=== PATIENT | female | born 1940 | race Caucasian/White ===

== ENCOUNTER 2024-11-09 08:32 | Day surgery (SDC) | payer BC ==
[2024-10-26 14:54] LABS: BASOPHILS % (AUTO) 0.6 % (0-1); EOSINOPHILS # (AUTO) 0.2 X10'3 (0-0.9); EOSINOPHILS % (AUTO) 2.1 % (0-6); LYMPHOCYTES # (AUTO) 1.9 X10'3 (1.1-4.8); LYMPHOCYTES % (AUTO) 25.9 % (21-51); MEAN CORPUSCULAR HEMOGLOBIN 31.9 PG (27.0-31.0); MEAN CORPUSCULAR HGB CONC 34.1 g/dL (33.0-36.5); MEAN CORPUSCULAR VOLUME 93.5 FL (78-98); MEAN PLATELET VOLUME 7.5 FL (7.4-10.4); MONOCYTES # (AUTO) 0.5 X10'3 (0-0.9); MONOCYTES % (AUTO) 7.6 % (2-12); NEUTROPHILS # (AUTO) 4.6 X10'3 (1.8-7.7); NEUTROPHILS % (AUTO) 63.8 % (42-75); PRE OP HEMATOCRIT 34.8 % (35.0-45.0); PRE OP HEMOGLOBIN 11.9 g/dL (12.0-16.0); PRE OP PLATELET COUNT 286 X10'3 (140-440); PRE OP WHITE BLOOD COUNT 7.2 10'3 (4.8-10.8); RED BLOOD COUNT 3.72 X10'6 (4.20-5.60); RED CELL DISTRIBUTION WIDTH 14.2 % (11.5-14.5)
[2024-10-26 14:54] LABS: BILIRUBIN,URINE NEGATIVE (Neg); CLARITY,URINE CLEAR (Clear); COLOR,URINE YELLOW (Yellow); GLUCOSE, URINE NEGATIVE (Neg); KETONES,URINE NEGATIVE (Neg); LEUKOCYTE ESTERASE ,URINE NEGATIVE (Neg); NITRITES, URINE NEGATIVE (Neg); OCCULT BLOOD,URINE NEGATIVE (Neg); PH,URINE 7.5 (4.8-8.0); PROTEIN,URINE NEGATIVE (Neg); UROBILINOGEN,URINE 0.2 E.U/dL (0.2-1.0)
[2024-10-26 15:07] LABS: UA COLLECTION TYPE CLN CATCH MIDSTREAM
[2024-10-26 15:08] LABS: PRE OP INR 1.1 INR; PRE OP PROTIME 11.4 SECONDS (9.0-12.0)
[2024-10-26 15:31] LABS: ALBUMIN 3.8 G/DL (3.4-5.0); ALBUMIN/GLOBULIN RATIO 1.1 (1.1-1.5); ALKALINE PHOSPHATASE 55 IU/L (46-116); BLOOD UREA NITROGEN 11 MG/DL (7-18); BUN/CREATININE RATIO 14.1 (10.0-20.0); CALCIUM 9.5 MG/DL (8.5-10.1); CHLORIDE 101 MMOL/L (99-107); CREATININE 0.78 MG/DL (0.40-0.90); PRE OP ALT 10 U/L (30-65); PRE OP ANION GAP 7 (8-16); PRE OP AST 20 U/L (10-37); PRE OP BILIRUB, TOTAL 0.6 MG/DL (0.0-1.0); PRE OP GLUCOSE 113 MG/DL (70-104); PRE OP POTASSIUM 4.1 MMOL/L (3.4-5.1); PRE OP SODIUM 136 MMOL/L (135-145); THYROID STIMULATING HORMONE 0.83 ulU/ml (0.34-4.50); TOTAL CARBON DIOXIDE 28.3 MMOL/L (24-32); TOTAL PROTEIN 7.3 G/DL (6.4-8.2); eGFR 71 ML/MIN
[2024-10-26 15:33] LABS: HEMOGLOBIN A1C 6.4 % (4.5-6.2)
[2024-11-09] VITALS (33 sets, daily range): BP systolic 95–151; BP diastolic 47–78; PULSE 63–82; RESP 12–21; TEMP 98–98.4; O2SAT 95–100
[~2024-11-09] VITALS: Ht 160 cm; Wt 59.2 kg
[2024-11-09] MEDS: tranexamic acid 1gm/0.7% sal. 100 ML IV ONE (05:30)
[2024-11-09] MEDS: ceFAZolin 2gm in dextrose, iso 50 ML IV ONE (05:30)
[~2024-11-09 08:32] MED LIST: ACET-75 PO; APIX5TAB3 PO; CALC-212 PO; CHOL10005 PO; DIPH25CA51 PO; DOCU-337 PO; FURO-150 PO; GABA300C PO; HYDR-3973 PO; LEVA15HF9 INH; LEVO75TA PO; LISI5TAB22 PO; MELA10TA2 PO; METF-436 PO; POTA-188 PO; Thrombin (Bovine) 5,000 unit vial TP ONE; VITA-268 PO; gelatin sponge, absorbable (Gelfoam 100) sponge TP ONE; methylene blue (5mg/ml) 50mg/10ml ampul IV ONE; vancomycin 1,000mg inj ONE
[2024-11-09] MEDS: famotidine 20mg tablet PO ONE (08:54)
[2024-11-09] MEDS: ringers solution, lacted 1,000 ML IV SCH ×2 (08:55→13:15)
[2024-11-09] MEDS ORDERED: midazolam 1 mg/ML 2ml injection ONE (10:28)
[2024-11-09] MEDS ORDERED: sevoflurane 250ml liquid IH ONE (10:28)
[2024-11-09] MEDS ORDERED: diphenhydrAMINE 25mg capsule PO PRN (10:30)
[2024-11-09] MEDS ORDERED: ondansetron/PF 4mg/2ml inj IV PRN ×2 (10:30→13:15)
[2024-11-09] MEDS ORDERED: bisacodyl 10mg suppository rectal RC PRN (10:30)
[2024-11-09] MEDS ORDERED: naloxone 0.4 mg/ml inj IV PRN (10:30)
[2024-11-09] MEDS ORDERED: acetaminophen 325mg tablet PO PRN (10:30)
[2024-11-09] MEDS ORDERED: magnesium hydroxide 30ml (MOM) UD suspension PO PRN (10:30)
[2024-11-09] MEDS ORDERED: fentaNYL /PF 50mcg/ml 5ml ampule ONE (10:32)
[2024-11-09] MEDS ORDERED: propofol inj 20 ML IV ONE (11:26)
[2024-11-09] MEDS ORDERED: ePHEDrine 50MG/ML INJ. ONE (11:26)
[2024-11-09] MEDS ORDERED: ROPIVAcaine 0.5% (5mg/ml) 30ml vial ONE (11:26)
[2024-11-09] MEDS ORDERED: 0.9 % SODIUM CHLORIDE 10 ML VIAL ONE ×2 (11:26→11:52)
[2024-11-09] MEDS ORDERED: dexamethasone sod phosphate 4mg/ml inj. ONE (11:26)
[2024-11-09] MEDS ORDERED: LIDOcaine 2% (20mg/ml) 5ml vial ONE (11:27)
[2024-11-09] MEDS ORDERED: LIDOcaine 1%/PF 5ML 10 MG/ML VIAL ONE (11:27)
[2024-11-09] MEDS ORDERED: ondansetron/PF 4mg/2ml inj ONE (11:27)
[2024-11-09] MEDS ORDERED: rocuronium 10mg/ml inj IV ONE (11:27)
[2024-11-09] MEDS ORDERED: phenylephrine 10mg/ml inj. ONE (11:51)
[2024-11-09] MEDS ORDERED: morphine 2 MG/ML inj. syringe IV PRN (13:15)
[2024-11-09] MEDS: acetaminophen 1,000mg/100ml IV 100 ML IV ONE (13:15)
[2024-11-09] MEDS ORDERED: labetalol 20mg/4ml (5mg/ml) syringe IV PRN (13:15)
[2024-11-09] MEDS ORDERED: hydrALAZINE 20mg/ml inj. IV PRN (13:15)
[2024-11-09] MEDS ORDERED: meperidine/PF 25mg/ml syringe IV PRN ×3 (13:15)
[2024-11-09] MEDS ORDERED: morphine 4 MG/ML inj SYRINge IV PRN (13:15)
[2024-11-09] MEDS ORDERED: proCHLORperazine 10 MG/2 ml inj IV PRN (13:15)
[2024-11-09] MEDS ORDERED: glucagon, human recombinant 1mg kit SUBCUT PRN (14:05)
[2024-11-09] MEDS ORDERED: dextrose 50%-water 50ml dispensing syringe IV PRN ×2 (14:05)
[2024-11-09] MEDS ORDERED: DEXTROSE 15 GM of carb/4 tabs (each vial/BOTTLE has 4 tablets) PO PRN ×2 (14:05)
[2024-11-09] MEDS: ceFAZolin 2gm in dextrose, iso 50 ML IV SCH (19:57)
[2024-11-09] MEDS: metFORMIN 500mg tablet PO SCH (19:58)
[2024-11-09] MEDS: potassium cl 20mEq in 1/2 NS 1,000 ML IV SCH (22:18)
[2024-11-09] MEDS: INSULIN LISPRO 100 UNIT/ML INSULN.PEN MULTI-DOSE SQ SCH (22:21)
[2024-11-10] MEDS: HYDROcodone/acetaminophen 5mg/325mg tablet PO PRN ×2 (01:33→09:39)
[2024-11-10 02:00] VITALS: BP 121/61; PULSE 69; RESP 18; TEMP 98.1; O2SAT 97
[2024-11-10 05:59] LABS: BASOPHILS % (AUTO) 0.1 % (0-1); EOSINOPHILS % (AUTO) 0 % (0-6); HEMATOCRIT 29.9 % (35.0-45.0); HEMOGLOBIN 10.2 g/dl (12.0-16.0); LYMPHOCYTES # (AUTO) 0.5 X10'3 (1.1-4.8); LYMPHOCYTES % (AUTO) 8.1 % (21-51); MEAN CORPUSCULAR HEMOGLOBIN 32.1 PG (27.0-31.0); MEAN CORPUSCULAR HGB CONC 34.2 g/dL (33.0-36.5); MEAN CORPUSCULAR VOLUME 94.1 FL (78-98); MEAN PLATELET VOLUME 7.6 FL (7.4-10.4); MONOCYTES # (AUTO) 0.7 X10'3 (0-0.9); MONOCYTES % (AUTO) 11.2 % (2-12); NEUTROPHILS # (AUTO) 5.4 X10'3 (1.8-7.7); NEUTROPHILS % (AUTO) 80.6 % (42-75); PLATELET COUNT 194 X10'3 (140-440); RED BLOOD COUNT 3.18 X10'6 (4.20-5.60); RED CELL DISTRIBUTION WIDTH 14.1 % (11.5-14.5); WHITE BLOOD COUNT 6.7 X10'3 (4.5-11.0)
[2024-11-10 06:19] LABS: ALANINE AMINOTRANSFERASE 11 U/L (12-78); ALBUMIN/GLOBULIN RATIO 1.2 (1.1-1.5); ALKALINE PHOSPHATASE 46 IU/L (46-116); ANION GAP 7 (8-16); ASPARTATE AMINO TRANSFERASE 13 U/L (10-37); BILIRUBIN,TOTAL 0.4 MG/DL (0.1-1.0); BLOOD UREA NITROGEN 21 MG/DL (7-18); BUN/CREATININE RATIO 21.9 (10.0-20.0); CALCIUM 8.5 MG/DL (8.5-10.1); CHLORIDE 103 MMOL/L (99-107); CREATININE 0.96 MG/DL (0.40-0.90); GLUCOSE 179 MG/DL (70-104); POTASSIUM 4.9 MMOL/L (3.5-5.1); SODIUM 134 MMOL/L (135-145); TOTAL CARBON DIOXIDE 24.1 MMOL/L (24-32); TOTAL PROTEIN 5.6 G/DL (6.4-8.2); eCRCL 37 ML/MIN; eGFR 56 ML/MIN
[2024-11-10] MEDS ORDERED: non-formulary drug (Vitamin B Complex (B Complex) 1 TAB) PO SCH (08:00)
[2024-11-10 10:15] VITALS: RESP 18
[2024-11-11] MEDS ORDERED: potassium chloride 10mEq ER tablet PO SCH (08:00)
== END 2024-11-10 10:15 | disposition home or self-care (01) ==
LOC: PAS 08:32 → ORTHO 4S 18:59 → PAS 11-10 10:15
PROVIDERS: ATTEND Specialist
DX: M75.102 Unspecified rotator cuff tear or rupture of left shoulder, not specified as traumatic (principal); M19.012 Primary osteoarthritis, left shoulder; E11.9 Type 2 diabetes mellitus without complications; I10 Essential (primary) hypertension; I48.91 Unspecified atrial fibrillation; F41.9 Anxiety disorder, unspecified; M54.16 Radiculopathy, lumbar region; M48.061 Spinal stenosis, lumbar region without neurogenic claudication; E11.40 Type 2 diabetes mellitus with diabetic neuropathy, unspecified; E03.9 Hypothyroidism, unspecified; Z79.01 Long term (current) use of anticoagulants; Z79.899 Other long term (current) drug therapy; M47.816 Spondylosis without myelopathy or radiculopathy, lumbar region; Z90.710 Acquired absence of both cervix and uterus; G89.18 Other acute postprocedural pain
CPT/HCPCS: 23472; 36415; 64415; 73030; 80053; 81003; 82948; 83036; 84443; 85025; 85610; 85730; 86885; 86900; 86901; 87081; 97110; 97116; 97161; 97530; C1776; J0690; J0735; J1100; J1815; J2003; J2250; J2371; J2405; J2704; J2795; J3010; J3370; J3480; J3490; J7030; J7120; Z7506; Z7508; Z7512; 76000; A4565; A4618; A6449; A6455; A7000; G0378; J2370; Q9968